=== PATIENT | female | born 1950 | race Caucasian/White ===

== ENCOUNTER → 2018-09-14 | Outpatient (CLI) | payer MEDICARE, OTHER ==
--- NOTE | 2018-09-15 08:06 | XR ---
EXAMINATION TYPE: XR chest 2V DATE OF EXAM: 09/14/2018 COMPARISON: NONE HISTORY: Cough, persistent throat pain TECHNIQUE: Frontal and lateral views of the chest are obtained. FINDINGS: There is a patchy reticular opacity at the right lung base that is subtle. 6 mm right midl danielle probable granuloma is noted. Biapical pleural-parenchymal scarring is seen in addition to biapica l lucency suggesting mild pulmonary emphysema biapical fibrosis. Cardia mediastinal silhouette is wit hin normal limits. Minimal degenerative changes of the thoracic spine are seen. IMPRESSION: Faint reticular right basilar opacity that could represent pneumonitis of infectious or inflammatory etiology. Probable right midlung granuloma is also noted. Background mild emphysematous changes are suspected.
== END | disposition home or self-care (01) ==
LOC: RADXRMAIN 13:46
PROVIDERS: ATTEND Otolaryngology
DX: R91.8 Other nonspecific abnormal finding of lung field (principal); R05 Cough
CPT/HCPCS: 71046

== ENCOUNTER → 2018-09-28 | Outpatient (CLI) | payer MEDICARE, OTHER ==
--- NOTE | 2018-09-28 12:15 | CT ---
EXAMINATION TYPE: CT chest w con DATE OF EXAM: 09/28/2018 COMPARISON: Chest x-ray September 24, 2018 and older study September 14 2018 HISTORY: Abnormal CXR CT DLP: 195.0 mGycm. Automated Exposure Control for Dose Reduction was Utilized. TECHNIQUE: CT scan of the thorax is performed following with IV Contrast, patient injected with 80 m L of Isovue 300. FINDINGS: LUNGS: There is background mild to moderate emphysematous change most prominent in the upper lobes. C orresponding to right midlung lateral nodule is oval pleural-based 9 x 4 mm calcification or focal ca lcified plaque axial image 29. Corresponding to lateral right basilar abnormality is irregular cavita ry subpleural lesion measuring roughly 2.0 x 1.7 cm axial image 45 x 2.5 cm craniocaudal dimension co phong image 55. There is irregular soft tissue along the periphery with slight nodularity medially an d laterally. While I favor postinflammatory scar, cavitary neoplasm is in differential. One may consi baldev short-term contrast-enhanced CT in 3 months time or PET/CT to further evaluate. No pleural effusi on or pneumothorax is evident bilaterally. There is 6 x 4 mm nodule posterior superior aspect left lo wer lobe axial image 22 noted. MEDIASTINUM: There are no greater than 1 cm hilar or mediastinal lymph nodes. No cardiomegaly or pe ricardial effusion is seen. There is mild to moderate mixed plaque in the aorta extending into branc h vessels. OTHER: There is mild multilevel spurring in the thoracic spine. IMPRESSION: 1. As above, right midlung nodule is calcified and pleural-based presumed benign possible calcified p leural plaque. The right lateral basilar finding is more suspicious than I do favor postinflammatory scar, active intraparenchymal abscess should be excluded clinically. Cavitary neoplasm is in differen tial and short-term follow-up CT 3 months time or PET/CT is advised to further evaluate. Small superi or posterior left lower lobe nodule noted also requires follow-up CT per Fleischner Society recommend ations.
== END ==
LOC: RADCTMAIN 09:34
PROVIDERS: ATTEND Internal Medicine
DX: R91.8 Other nonspecific abnormal finding of lung field (principal)
CPT/HCPCS: 82565; 84520; 71260; 36415; Q9967

== ENCOUNTER 2018-10-07 10:03 | Day surgery (SDC) | payer MEDICARE, OTHER ==
[2018-10-01 13:30] VITALS: BMI 24.9
[~2018-10-07 10:03] MED LIST: DEXAMETHASONE SOD PHOSPHATE 10 MG/ML 1 ML VIAL IV ONE; DEXAMETHASONE SOD PHOSPHATE 4 MG/ML 1 ML VIAL IV ONE; FAMOTIDINE 20 MG/2 ML VIAL IV ONE; HYDROmorphone 0.5 MG/0.5 ML SYRINGE IVP PRN; LACTATED RINGERS 1,000 ML IV SCH; LIDOCAINE 1% 20 ML VIAL (10MG/ML) FOR IV START INTRADERMA PRN; ONDANSETRON 4 MG/2 ML VIAL IVP ONE; ceFAZolin 1,000 MG in DEXTROSE/WATER 1 50ML.BAG IV ONE
[2018-10-07 10:54] VITALS: RESP 16
[2018-10-07] MEDS ORDERED: DEXAMETHASONE SOD PHOS (MDV) 100 MG/10 ML VIAL ONE (12:57)
[2018-10-07] MEDS ORDERED: MIDAZOLAM 2 MG/2 ML VIAL ONE (12:57)
[2018-10-07] MEDS ORDERED: SUCCINYLCHOLINE CHLORIDE 100 MG/5 ML SYR IV ONE (12:57)
[2018-10-07] MEDS ORDERED: PROPOFOL 10 MG/ML 20 ML VIAL IV ONE (12:57)
[2018-10-07] MEDS ORDERED: fentaNYL (PF) 50 MCG/ML 2 ML AMP ONE (12:57)
[2018-10-07] MEDS ORDERED: LIDOCAINE 1% INJ 10MG/ML (20 ML MDV) ONE (12:57)
--- NOTE | 2018-10-07 13:51 | P.OP ---
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 Flores rgical correction was recommended. Operative Findings: Left vocal cord polyp was large and obstructive it has been removed Description of Procedure: This patient was taken to the operative room and placed in the supine position. A general inhalation anesthetic was administered to the patient by mask and subsequently intubated with a #5 DISPENSARY ATTENDANT tube. A tooth guard was placed and a Jako laryngoscope was placed into the patient's mouth with care to avoid any trauma to the lips teeth gums and tongue. The entire oropharynx and hypopharynx was evaluated. We visualized the base of the tongue, vallecula, epiglottis, true and false vocal cords, piriform sinus, postcricoid space etc. etc. The scope was placed on suspension on a Lewy and microscopic visualization was performed with a Zeiss microscope. With use of a microdebrider utilizing a physical security engineer blade with an oscillation a 500 with low pressure suction this left vocal cord polyp was removed entirely. Excellent results were obtained and the patient had all instrumentation removed and was taken to postanesthesia recovery in excellent condition. Patient is to follow-up in the office in 1 week and a contralateral polyp removal is scheduled for 6 weeks.
[2018-10-07 13:53] VITALS: TEMP 9.4
[2018-10-07 15:15] VITALS: BP 119/78; PULSE 80
== END 2018-10-07 15:00 | disposition home or self-care (01) ==
LOC: OR 10:03
PROVIDERS: ATTEND Otolaryngology
DX: J38.1 Polyp of vocal cord and larynx (principal); J37.0 Chronic laryngitis; K21.9 Gastro-esophageal reflux disease without esophagitis; J43.9 Emphysema, unspecified; Z87.891 Personal history of nicotine dependence; Z80.0 Family history of malignant neoplasm of digestive organs
CPT/HCPCS: 31541; J2250; J1100 ×2; J2405; J2001; J3010; J0690; J0330; J2704; 88305

== ENCOUNTER → 2018-11-06 | Outpatient (CLI) | payer MEDICARE, OTHER ==
--- NOTE | 2018-11-08 06:27 | PE ---
EXAMINATION TYPE: PET CT fusion skull to thigh DATE OF EXAM: 11/06/2018 COMPARISON: Chest CT September 28, 2018 HISTORY: Abnormal CT, solitary pulmonary nodule left lung. TECHNIQUE: Following the intravenous administration of 12.97 mCi of F-18 FDG, whole body images are performed from the skull base to the midthigh. Images are reviewed on the computer in the coronal, a xial, and sagittal planes. Reconstructed rotating images are created on independent workstation and reviewed on the computer. A noncontrast CT is performed in conjunction with the PET scan. SCAN: Initial Scan FINDINGS: SKULL BASE AND NECK: No suspicious hypermetabolic uptake. Symmetric uptake at focal cords is presume d physiologic. CHEST, MEDIASTINUM, AND HILAR REGION: Background mild to moderate underlying emphysematous change is redemonstrated. Pleural-based calcification or calcified plaque right midlung axial image 83 is redem onstrated.. There is persistent cavitary lesion right lung base near diaphragm with more solid compon ent on current study abutting the pleural surface measuring 2.4 x 2.3 cm axial image 94, minimal hype rmetabolic uptake is seen, max SUV is 2.28. Dependent atelectasis bilateral lower lobes is seen. Ther e is redemonstration of 6 x 6 mm ametabolic nodule superior aspect left lower lobe axial image 65. No hypermetabolic areas in the thorax or suspicious adenopathy is identified. ABDOMEN AND PELVIS: No suspicious hypermetabolic uptake is seen. No adrenal masses are evident. OSSEOUS STRUCTURES: No suspicious hypermetabolic uptake. OTHER CT: Coronary artery calcification is present which is noted marked underlying coronary artery d isease. Moderate calcified plaque of aorta extends into branch vessels. There are pars defects with grade 2 spondylolisthesis and advanced disc space narrowing at lumbosacra l junction. IMPRESSION: No suspicious (max SUV greater than 2.5) in the cavitary right lower lobe nodule with inc reasing solid component, a low-grade neoplasm such as bronchoalveolar carcinoma cannot be excluded. C onsider short-term CT monitoring in 3 months time or attempted sampling for follow-up.
== END | disposition home or self-care (01) ==
LOC: RADPETMAIN 11:55
PROVIDERS: ATTEND Internal Medicine
DX: R91.8 Other nonspecific abnormal finding of lung field (principal)
CPT/HCPCS: 78815; A9552

== ENCOUNTER 2018-12-23 09:21 | Day surgery (SDC) | payer MEDICARE, OTHER ==
[2018-12-17 14:55] VITALS: BMI 26.2
[~2018-12-23 09:21] MED LIST changes: +MIDAZOLAM 2 MG/2 ML VIAL IV PRN; +SCOPOLAMINE 1.5MG/72HR PATCH TRANSDERM ONE; -ceFAZolin 1,000 MG in DEXTROSE/WATER 1 50ML.BAG IV ONE
[2018-12-23] MEDS ORDERED: MIDAZOLAM 2 MG/2 ML VIAL ONE (11:29)
[2018-12-23] MEDS ORDERED: SUCCINYLCHOLINE CHLORIDE 100 MG/5 ML SYR IV ONE (11:29)
[2018-12-23] MEDS ORDERED: DEXAMETHASONE SOD PHOS (MDV) 100 MG/10 ML VIAL ONE (11:29)
[2018-12-23] MEDS ORDERED: LIDOCAINE 1% INJ 10MG/ML (20 ML MDV) ONE (11:29)
[2018-12-23] MEDS ORDERED: fentaNYL (PF) 50 MCG/ML 2 ML AMP ONE (11:29)
[2018-12-23] MEDS ORDERED: PROPOFOL 10 MG/ML 20 ML VIAL IV ONE (11:29)
[2018-12-23 12:19] VITALS: TEMP 97
--- NOTE | 2018-12-23 12:47 | P.OP ---
Date of Procedure: 12/23/18 Preoperative Diagnosis: Right vocal cord polyp Postoperative Diagnosis: Right vocal cord polyp and cyst Procedure(s) Performed: Direct microscopic laryngoscopy with removal of a right vocal cord polyp and cyst Anesthesia: HUBERTA Surgeon: Charli Denney Estimated Blood Loss (ml): 0 Pathology: other (Right vocal cord cyst and polyp) Condition: stable Disposition: PACU Indications for Procedure: This patient has significant hoarseness and the patient was found have a polyp t he right vocal cord. The patient has not responded to medical therapy so therefore surgical removal was recommended. Operative Findings: Patient was found have a right vocal cord polyp and behind it was a cyst which were both removed Description of Procedure: This patient was taken to the operative room and placed in the supine position. A general inhalation anesthetic was administered the patient by mask and subsequently intubated with a cuffed endotracheal tube by the department of anesthesia with a functioning IV line in place. The patient was monitored throughout the entire case by the department of anesthesia. We utilized a #5 PAPER BAGS SEWING MACHINE OPERATOR tube. A Jako laryngoscope was placed in the patient's mouth with care to avoid any trauma to the lips teeth gums and tongue. A tooth guard was placed. The entire Daniel and hypopharynx was evaluated including the base of the tongue, vallecula, epiglottis, lateral pharynx, postcricoid space etc. etc. This was then placed on a Lewy and placed on suspension and the vocal cords were evaluated under high-powered microscope evaluation. The right vocal cord had a polyp which was removed gently with use of a dandy tender blade with low suction and a 500 oscillating speed with gentle dissection with care to avoid any trauma to the lamina propria. After the polyp was removed a small cyst was seen behind it and this was also removed with a sickle knife with mucosal sparing technique. The patient tolerated this well and the patient was extubated and sent to postanesthesia recovery in excellent condition. Follow-up is scheduled for 1 week she is on one week of total voice rest.
[2018-12-23 13:10] VITALS: RESP 18
[2018-12-23 13:39] VITALS: BP 112/57; PULSE 70
== END 2018-12-23 13:50 | disposition home or self-care (01) ==
LOC: OR 09:21
PROVIDERS: ATTEND Otolaryngology
DX: J38.1 Polyp of vocal cord and larynx (principal); K21.9 Gastro-esophageal reflux disease without esophagitis; J43.9 Emphysema, unspecified; J30.9 Allergic rhinitis, unspecified; Z87.891 Personal history of nicotine dependence; Z79.1 Long term (current) use of non-steroidal anti-inflammatories (NSAID); Z79.899 Other long term (current) drug therapy; Z80.0 Family history of malignant neoplasm of digestive organs; Z90.710 Acquired absence of both cervix and uterus
CPT/HCPCS: 31541; 88305; J2250; J1100 ×2; J2405; J0690; J2001; J3010; J0330; J2704

== ENCOUNTER → 2019-04-06 | Outpatient (CLI) | payer MEDICARE, OTHER ==
--- NOTE | 2019-04-07 14:20 | CT ---
EXAMINATION TYPE: CT chest w con DATE OF EXAM: 04/06/2019 COMPARISON: 11/06/2018 and 09/28/2018 HISTORY: 68-year-old female with lung nodules TECHNIQUE: Contiguous axial scanning of the chest after the administration of 100 mL of Isovue 300. Coronal/sagittal reconstructions performed. CT DLP: 211.6mGycm. Automatic exposure control utilized for a dose reduction. FINDINGS: Heart normal size without pericardial effusion. Aorta normal caliber with conventional mucosal branching anatomy in focal severe atherosclerotic narr owing of the proximal left subclavian artery. No thoracic lymphadenopathy by CT size criteria. Evaluation of the lungs shows mild to moderate centrilobular emphysema particularly in the upper lung s. Stable calcified pleural plaques peripherally at the mid lungs. Stable mixed groundglass and solid nodule superior segment left lower lobe measuring 8 mm for which o ngoing follow-up is recommended. Redemonstrated focal subpleural areas of masslike opacity peripheral right lower lobe with 2 contiguo us components spending up to 5.3 cm craniocaudal. The more superior component measures 2.3 cm and the more inferior component measures 2.6 cm versus 2.3 and 1.3 cm, previously. Most notably, overall inc rease in soft tissue bulk makes these areas very suspicious. No consolidation or pleural effusion. Visualized upper abdomen shows no gross abnormality. Bones: Mild endplate spondylosis mid and lower thoracic spine. IMPRESSION: 1. 2 contiguous focal opacities subpleural right lower lobe measure 2.3 cm and 2.6 cm spanning up to 5.3 cm craniocaudal. There is progressively increasing soft tissue bulk and increasing size. Findings highly concerning for lung cancer. Tissue sampling is recommended. 2. 8 mm mixed solid and groundglass nodule superior segment left lower lobe warrants continued follow -up. 3. COPD with mild to moderate upper lung emphysema.
== END ==
LOC: RADCTMAIN 14:37
PROVIDERS: ATTEND Internal Medicine
DX: J43.9 Emphysema, unspecified (principal); R91.8 Other nonspecific abnormal finding of lung field; R91.1 Solitary pulmonary nodule
CPT/HCPCS: 71260; Q9967

== ENCOUNTER 2019-05-02 08:22 | Day surgery (SDC) | payer MEDICARE, OTHER ==
[2019-05-02] MEDS ORDERED: ALPRAZolam 0.25 MG TAB PO ONE (08:47)
[2019-05-02] MEDS ORDERED: HYDROmorphone 1 MG/ML 1 ML SYRINGE IVP PRN (08:47)
[2019-05-02 08:59] LABS: Mean Platelet Volume 9.5; Platelet Count 277 k/uL (150-450)
[2019-05-02 09:05] LABS: INR 0.9 (<1.2); Prothrombin Time 9.9 sec (9.0-12.0)
[2019-05-02 09:21] VITALS: TEMP 98.1
--- NOTE | 2019-05-02 11:09 | XR ---
EXAMINATION TYPE: XR chest 1V portable DATE OF EXAM: 05/02/2019 COMPARISON: 09/14/2018 HISTORY: Post lung biopsy TECHNIQUE: Single frontal view of the chest is obtained. FINDINGS: Radiocarpal pneumothorax has an estimated volume of approximately 50% with maximum apical pleural separation of 2.0 cm. Approximately 5.5 mm right midlung nodule and right basilar patchy dens ity are again noted. Right midlung nodule is noted to be related to a calcified pleural plaque. Left lung remains well aerated. Mediastinum appears stable in position from the prior x-ray. Cardia medias tinal silhouette is nonenlarged. No acute osseous pathology. IMPRESSION: Right sided pneumothorax estimated at 15% status post right lung biopsy.
[2019-05-02 11:21] VITALS: RESP 16
--- NOTE | 2019-05-02 12:47 | CT ---
EXAMINATION TYPE: CT guided FNA DATE OF EXAM: 05/02/2019 HISTORY: Right lung mass COMPARISON: CT 04/06/2019 Maximal barrier technique was utilized. The skin overlying a suitable path to the right lower lobe lung lesion was localized using CT and the overlying skin was prepped and draped. Lidocaine used for local anesthesia. Using CT guidance, access was gained to the lesion with a 25-gauge needle. Aspirated specimen submitted to cytology. Pneumothorax noted to have developed during the procedure. 1 pass were performed in all. The patient is discharged in stable condition. Hemostasis achieved. IMPRESSION: Pneumothorax during lung biopsy. Post procedure chest x-ray pending. THIS PROCEDURE WAS PERFORMED BY THE UNDERSIGNED. BERNY
--- NOTE | 2019-05-02 13:21 | XR ---
EXAMINATION TYPE: XR chest 1V portable DATE OF EXAM: 05/02/2019 COMPARISON: Chest x-ray earlier today. Chest CT April 06, 2019 HISTORY: Pneumothorax after right lung biopsy. TECHNIQUE: Single frontal view of the chest is obtained. FINDINGS: There is improving right apical pneumothorax from most recent chest x-ray. Background video specialist sana emphysematous change. Background masslike consolidation lateral right lung base. The cardiac kailee houette size remains within normal limits. No mediastinal shift. The osseous structures remain demin eralized. IMPRESSION: Improving right apical pneumothorax estimated at 5-10% currently.
[2019-05-02 14:05] VITALS: BP 155/82; PULSE 69
== END 2019-05-02 14:00 | disposition home or self-care (01) ==
LOC: RADPROMAIN 08:22
PROVIDERS: ATTEND Internal Medicine
DX: R91.8 Other nonspecific abnormal finding of lung field (principal); J95.811 Postprocedural pneumothorax; J43.9 Emphysema, unspecified
CPT/HCPCS: 10009; 36415; 71045; 77012; 85049; 85610; 88173

== ENCOUNTER → 2019-05-03 | Outpatient (CLI) | payer MEDICARE, OTHER ==
--- NOTE | 2019-05-03 12:50 | XR ---
EXAMINATION TYPE: XR chest 1V DATE OF EXAM: 05/03/2019 COMPARISON: Prior chest x-ray 05/02/2019 HISTORY: Pneumothorax TECHNIQUE: Single frontal view of the chest is obtained. FINDINGS: Findings are similar to prior exam. Mass is noted in the right lower lobe. Small right api jarvis pneumothorax is essentially stable accounting for differences in technique. IMPRESSION: Essentially stable postprocedural changes. Small apical pneumothorax.
== END ==
LOC: RADXRMAIN 12:10
PROVIDERS: ATTEND Internal Medicine
DX: J93.9 Pneumothorax, unspecified (principal); Z98.890 Other specified postprocedural states
CPT/HCPCS: 71045

== ENCOUNTER → 2019-07-21 | Outpatient (CLI) | payer MEDICARE, OTHER ==
[2019-07-21 15:44] LABS: Potassium 3.5 mmol/L (3.5-5.1)
[2019-07-21 15:45] LABS: Appearance,Urine Clear (Clear); Bilirubin,Urine Negative (Negative); Blood,Urine Negative (Negative); Color,Urine Light Yellow; Glucose,Urine (UA) Negative (Negative); Ketones,Urine Negative (Negative); Leukocyte Esterase,Urine Negative (Negative); Nitrite,Urine Negative (Negative); Protein,Urine Negative (Negative); Specific Gravity,Urine 1.005 (1.001-1.035); Urobilinogen,Urine <2.0 mg/dL (<2.0)
[2019-07-21 15:51] LABS: INR 0.9 (<1.2); Prothrombin Time 9.7 sec (9.0-12.0)
[2019-07-21 21:11] LABS: Basophils % (A) 0 %; Eosinophils # (A) 0.2 k/uL (0-0.7); Eosinophils % (A) 2 %; HCT 41.3 % (34.0-46.0); HGB 13.7 gm/dL (11.4-16.0); Lymphocytes # (A) 3.7 k/uL (1.0-4.8); Lymphocytes % (A) 35 %; MCH 29.9 pg (25.0-35.0); MCHC 33.2 g/dL (31.0-37.0); MCV 90.1 fL (80.0-100.0); Mean Platelet Volume 11.6; Monocytes # (A) 0.6 k/uL (0-1.0); Monocytes % (A) 6 %; Neutrophils # (A) 6.1 k/uL (1.3-7.7); Neutrophils % (A) 56 %; Platelet Count 270 k/uL (150-450); RBC 4.59 m/uL (3.80-5.40); RDW 13.5 % (11.5-15.5); WBC 10.8 k/uL (3.8-10.6)
== END | disposition home or self-care (01) ==
LOC: LABPAT 15:04
PROVIDERS: ATTEND Thoracic Surgery (Cardiothoracic Vascular Surgery)
DX: Z01.812 Encounter for preprocedural laboratory examination (principal); Z01.818 Encounter for other preprocedural examination; R91.1 Solitary pulmonary nodule; R58 Hemorrhage, not elsewhere classified; E86.0 Dehydration
CPT/HCPCS: 36415; 80051; 81003; 82565; 82947; 84520; 85025; 85610; 85730; 87086; 93005

== ENCOUNTER 2019-08-04 10:22 | Day surgery (SDC) | payer MEDICARE, OTHER ==
[2019-07-29 15:06] VITALS: BMI 24.7
[~2019-08-04 10:22] MED LIST changes: -DEXAMETHASONE SOD PHOSPHATE 4 MG/ML 1 ML VIAL IV ONE; -FAMOTIDINE 20 MG/2 ML VIAL IV ONE; -MIDAZOLAM 2 MG/2 ML VIAL IV PRN; -SCOPOLAMINE 1.5MG/72HR PATCH TRANSDERM ONE
[2019-08-04] MEDS ORDERED: SUCCINYLCHOLINE CHLORIDE VIAL 200 MG/10 ML VIAL IV ONE (11:12)
[2019-08-04] MEDS ORDERED: fentaNYL (PF) 50 MCG/ML 2 ML AMP ONE (11:12)
[2019-08-04] MEDS ORDERED: MIDAZOLAM 2 MG/2 ML VIAL ONE (11:12)
[2019-08-04] MEDS ORDERED: LIDOCAINE 1% INJ 10MG/ML (20 ML MDV) ONE (11:12)
[2019-08-04] MEDS ORDERED: DEXAMETHASONE SOD PHOS (MDV) 100 MG/10 ML VIAL ONE (11:12)
[2019-08-04] MEDS ORDERED: PROPOFOL 10 MG/ML 20 ML VIAL IV ONE (11:12)
--- NOTE | 2019-08-04 12:08 | P.OP ---
Date of Procedure: 08/04/19 Preoperative Diagnosis: Right lung mass Postoperative Diagnosis: Same Procedure(s) Performed: Endotracheal intubation aborted surgery Anesthesia: GETA Surgeon: Rogers Mares Estimated Blood Loss (ml): 5 IV fluids (ml): 100 Pathology: none sent Condition: stable Disposition: PACU Indications for Procedure: 68-year-old female with right lower lobe mass. Needle biopsy was nondiagnostic. PET scan did not show uptake. Discussion was held with patient over options. Was decided to go for wedge resection for diagnosis. Operative Findings: Patient's vocal cords were very anterior and narrow. She is a small patient 5-1 tall. We able to pass a 7 endotracheal tube were unable to pass a double-lumen tube. Description of Procedure: Patient was brought to the operating room placed supine on the operating table anesthetized. We will unable to pass a double-lumen endotracheal tube directly. 7-Azerbaijani endotracheal tube was placed. Attempts to place the double-lumen tube over a tube exchanger were unsuccessful. The tube would not advance past the cords. We also tried a fiberoptic intubation but due to the very anterior position of the cords were unable to successfully pass the scope through the cords and into the airway. Ultimately was decided to abandon the procedure rather than risk injury to the cords. Further discussion will be held with the patient of her options including repeat needle biopsy, watch and wait with CT or open procedure. Patient was extubated and transferred to recovery in stable condition. Plan - Discharge Summary Discharge Rx Participant: No New Discharge Prescriptions: No Action Ibuprofen [Advil] 400 mg PO HS PRN PRN Reason: Pain Pantoprazole Sodium [Protonix] 40 mg PO AC-SUPPER Naproxen Sodium [Aleve] 220 - 440 mg PO BID PRN PRN Reason: Pain Acetaminophen Tab [Tylenol] 1 tab PO Q6HR PRN PRN Reason: Pain Discharge Medication List Ibuprofen [Advil] 400 mg PO HS PRN 12/17/18 [History] Pantoprazole Sodium [Protonix] 40 mg PO AC-SUPPER 12/17/18 [History] Naproxen Sodium [Aleve] 220 - 440 mg PO BID PRN 07/29/19 [History] Acetaminophen Tab [Tylenol] 1 tab PO Q6HR PRN 08/04/19 [History]
[2019-08-04] MEDS ORDERED: LACTATED RINGERS 1,000 ML IV ONE (12:18)
[2019-08-04] MEDS ORDERED: RACEPINEPHRINE 2.25% NEB 0.5 ML NEBU INHALATION ONE ×2 (12:23)
[2019-08-04 12:34] VITALS: TEMP 98
[2019-08-04 14:12] VITALS: BP 136/80; PULSE 63; RESP 17
== END 2019-08-04 14:13 | disposition home or self-care (01) ==
LOC: 2ORMAIN 10:22 → OR 10:22 → UNDOADMIN 10:22 → EDSTATUS 11:55 → OR 14:13 → UNDODISIN 14:13
PROVIDERS: ATTEND Thoracic Surgery (Cardiothoracic Vascular Surgery)
DX: R91.8 Other nonspecific abnormal finding of lung field (principal); Z53.8 Procedure and treatment not carried out for other reasons; J38.3 Other diseases of vocal cords; J44.9 Chronic obstructive pulmonary disease, unspecified; K21.9 Gastro-esophageal reflux disease without esophagitis; M19.90 Unspecified osteoarthritis, unspecified site; F32.9 Major depressive disorder, single episode, unspecified; F17.200 Nicotine dependence, unspecified, uncomplicated; Z87.01 Personal history of pneumonia (recurrent); Z79.899 Other long term (current) drug therapy; Z87.898 Personal history of other specified conditions; Z90.710 Acquired absence of both cervix and uterus; Z98.890 Other specified postprocedural states; Z90.49 Acquired absence of other specified parts of digestive tract; Z79.1 Long term (current) use of non-steroidal anti-inflammatories (NSAID); Z82.0 Family history of epilepsy and other diseases of the nervous system; Z80.0 Family history of malignant neoplasm of digestive organs; Z82.5 Family history of asthma and other chronic lower respiratory diseases; Z82.61 Family history of arthritis
CPT/HCPCS: 32608; J2250; J0330; J2405; J2001; J3010; J1100; J2704

== ENCOUNTER → 2019-08-23 | Outpatient (CLI) | payer MEDICARE, OTHER ==
--- NOTE | 2019-08-23 14:03 | CT ---
EXAMINATION TYPE: CT chest w con DATE OF EXAM: 08/23/2019 COMPARISON: 04/06/2019 and PET/CT 11/06/2018 HISTORY: Follow up for known lung mass CT DLP: 468 mGycm Automated exposure control for dose reduction was used. CONTRAST: CT scan of the chest is performed with IV Contrast, patient injected with 100 mL of Isovue 300. FINDINGS: LUNGS: Right lower lobe mass near the pleural surface and measures 3.0 x 2.5 x 2.6 cm enlarged from p rior study with measurement of 2.6 x 2.1 x 2.3 cm.. Malignancy is not excluded. Groundglass density l eft upper lobe measures 7.6 mm versus 7.8 mm previously. No additional nodules or masses identified. No evidence of pleural effusion or infiltrate. MEDIASTINUM: There are no greater than 1 cm hilar or mediastinal lymph nodes. No pericardial effusi on is seen. Thoracic aorta is of normal caliber. The heart is not enlarged. UPPER ABDOMEN: No significant abnormality appreciated. OTHER: No additional significant abnormality is seen. IMPRESSION: 1. Enlarging mass right lower lobe mass near the pleural surface. Neoplasm is not excluded. Previous PET/CT failed to demonstrate suspicious metabolic activity however given interval enlargement I do re commend tissue diagnosis.
== END | disposition home or self-care (01) ==
LOC: RADCTMAIN 12:04
PROVIDERS: ATTEND Thoracic Surgery (Cardiothoracic Vascular Surgery)
DX: R91.8 Other nonspecific abnormal finding of lung field (principal)
CPT/HCPCS: 82565; 84520; 71260; 36415; Q9967